=== PATIENT | male | born 1960 | race Caucasian/White ===

== ENCOUNTER 2017-04-22 05:47 | Inpatient (IN) | payer BC ==
--- NOTE | 2017-04-18 11:46 | HP ---
Satellite PMH - Chief Complaint Chief Complaint: left hip pain - Past Medical History Allergies/Adverse Reactions: Allergies Allergy/AdvReac Type Severity Reaction Status Date / Time No Known Drug Allergies Allergy Verified 04/15/17 12:25 Cardiovascular: Yes: HTN. No: AFIB Musculoskeletal: Yes: Other (RECENT LEFT TKR) Rheumatology: Yes: Gout - Current Medications Current Medications: Home Medications Medication Instructions Recorded Valsartan [Diovan] 160 mg PO DAILY 01/02/16 Colchicine [Colcrys -] 0.6 mg PO BID PRN 04/15/17 Satellite Physical Exam - Physical Examination General Appearance: Well Nourished, Well Developed, Alert & Oriented x3 ENT: Clear Lung: Normal air movement Heart: Regular rate & rhythm Extremities: Other (left hip- + ttp, decr rom, nvi xrays show grade 4 hip djd) Neurological: Intact, Alert, Oriented Satellite Impression/Plan - Impression/Plan Impression: left hip djd Operative Procedure: left agustina thr Date to be Performed: 04/22/17
[2017-04-22] MEDS ORDERED: GABAPENTIN 300 MG CAPSULE (FP) PO ONE (06:06)
[2017-04-22] MEDS ORDERED: CEFAZOLIN 2 GM/D5W 2 GM/50 ML ML IVPB ONE (06:06)
[2017-04-22] MEDS ORDERED: CELECOXIB 200 MG CAPSULE PO ONE (06:06)
[2017-04-22] MEDS ORDERED: oxyCODONE HCL 10 MG SUSTAINED ACTING TABLET PO ONE (06:06)
[2017-04-22] MEDS ORDERED: TRANEXAMIC ACID 1000 MG/10 ML VIAL IVPUSH ONE (06:06)
[2017-04-22] MEDS ORDERED: GABAPENTIN 300 MG CAPSULE (FP) ONE (06:09)
[2017-04-22] MEDS ORDERED: oxyCODONE HCL 10 MG SUSTAINED ACTING TABLET ONE (06:09)
[2017-04-22] MEDS ORDERED: CELECOXIB 200 MG CAPSULE ONE (06:09)
[2017-04-22 06:35] VITALS: BMI 42.3
[2017-04-22] MEDS ORDERED: VANCOMYCIN 1,000 MG VIAL (RESTRICTED TO ID ONLY) ONE (07:05)
[2017-04-22] MEDS ORDERED: ceFAZolin SODIUM 1 GM VIAL ONE ×2 (07:05→07:22)
[2017-04-22] MEDS ORDERED: ROPIVACAINE HCL 0.5% 30ML VIAL ONE (07:07)
[2017-04-22] MEDS ORDERED: MIDAZOLAM HCL 2 MG/2 ML SINGLE DOSE VIAL ONE ×2 (07:07→08:19)
[2017-04-22] MEDS ORDERED: SODIUM CHLORIDE 0.9% P/F 10 ML VIAL IJ ONE (07:07)
[2017-04-22] MEDS ORDERED: DEXAMETHASONE SOD PHOSPHATE/PF 10 MG/ML SDV ONE (07:07)
[2017-04-22] MEDS ORDERED: TRANEXAMIC ACID 1000 MG/10 ML VIAL ONE (07:22)
[2017-04-22] MEDS ORDERED: SUCCINYLCHOLINE CHLORIDE 200 MG/10 ML VIAL ONE (07:30)
[2017-04-22] MEDS ORDERED: ONDANSETRON 4 MG/2 ML VIAL ONE (08:30)
[2017-04-22] MEDS ORDERED: DEXAMETHASONE SOD PHOSPHATE 4 MG/1 ML VIAL ONE (08:30)
[2017-04-22] MEDS ORDERED: PROPOFOL 20 ML ONE ×2 (09:01)
[2017-04-22] MEDS ORDERED: VANCOMYCIN 1,000 MG VIAL (RESTRICTED TO ID ONLY) IVPB ONE (09:05)
[2017-04-22] MEDS ORDERED: MAG HYDROX/AL HYDROX/SIMETH 30 ML UNIT-DOSE CUP PO PRN (09:30)
[2017-04-22] MEDS ORDERED: LACTATED RINGERS SOLUTION 1,000 ML IV SCH (09:30)
[2017-04-22] MEDS ORDERED: ONDANSETRON 4 MG/2 ML VIAL IVPUSH PRN (09:30)
[2017-04-22] MEDS ORDERED: COLCHICINE 0.6 MG TABLET (FP) PO PRN (09:30)
[2017-04-22] MEDS ORDERED: MAGNESIUM HYDROX 2400MG/30ML ORAL SUSPENSION 30 ML CUP PO PRN (09:30)
--- NOTE | 2017-04-22 09:32 | OP ---
Operative Note - Note: Operative Date: 04/22/17 (ludmila) Pre-Operative Diagnosis: left hip djd Operation: left agustina thr Post-Operative Diagnosis: Same as Pre-op Surgeon: Yandel Ricci Billiard Player: Dawood Caldwell) Anesthesiologist/AIR TRAFFIC SYSTEMS TECHNICIAN: [place] Berry Anesthesia: Spinal, Local Specimens Removed: femoral head Estimated Blood Loss (mls): 150 Operative Report Dictated: Yes
[2017-04-22] MEDS ORDERED: VALSARTAN 160 MG TABLET (UD) PO SCH (10:00)
[2017-04-22] MEDS ORDERED: oxyCODONE HCL 5 MG TABLET PO PRN (11:09)
[2017-04-22] MEDS: ACETAMINOPHEN 325 MG TABLET (FP) PO SCH ×2 (13:00→17:30)
[2017-04-22] MEDS: CEFAZOLIN 2 GM/D5W 2 GM/50 ML ML IVPB SCH (15:37)
[2017-04-22] MEDS: oxyCODONE HCL 5 MG TABLET PO PRN ×2 (15:37→22:04)
--- NOTE | 2017-04-22 15:45 | SPEC ---
DATE OF OPERATION: 04/22/2017 PREOPERATIVE DIAGNOSIS: Degenerative joint disease left hip. POSTOPERATIVE DIAGNOSIS: Degenerative joint disease left hip. PROCEDURE PERFORMED: Left total hip replacement with robotic-assisted navigation (MAKOplasty). SURGICAL ATTENDING: Yandel Ricci MD OUTREACH LIBRARIAN: DALTON Joy and Shay Moore MD ANESTHESIA: Regional and spinal. CLOSURE: A 58 press-fit Tritanium acetabulum, a 36 +5 mm ceramic head, and a number 7 Accolade II press-fit femoral stem. Number 1 Vicryl for fascia, 0 and 2-0 subcutaneous, 3-0 Monocryl subcuticular with skin glue for skin, 4-0 undyed Vicryl for pin sites. ESTIMATED BLOOD LOSS: Less than 100 mL. COMPLICATIONS: None. CONDITION: To the recovery room in stable condition. DESCRIPTION OF PROCEDURE: The patient was taken to the operating room on April 22, 2017. Regional and spinal anesthesia was administered by the anesthesiologist. IV Kefzol and TXA were administered prophylactically prior to the case. The patient was placed in the lateral decubitus position will all prominences well-padded. The left hip area was prepped and draped in the usual sterile fashion. Using 3 small stab incisions over the iliac crest, 3 threaded pins were drilled in power fashion through the 2 tables of the crest. These pins were fastened and the navigation array for the Natalio navigation system. Next, a 12 to 15-cm curved longitudinal incision over the posterolateral aspect of the greater trochanter was incised. Hemostasis was achieved with Bovie cautery. Sharp dissection was carried down to level of the fascia. The fascia was opened the entire length of the incision, spreading the fibers of the gluteus ashley in the direction of origin. A Charnley retractor was placed in this layer. Care was taken not to impale the sciatic nerve. The short external rotators were detached off the insertion of the greater trochanter and peeled off the capsule. A posterior capsulotomy was then performed. A check point was malleted into the greater trochanter and a point on the inferior pole of the patella was obtained as well. These 2 points were used to assess the preoperative offset and limb lengths of the hip. The hip was then dislocated. The femoral neck was then osteotomized down to the appropriate level as directed by the navigation device. Anterior and posterior retractors were placed, exposing the acetabulum. A circumferential labral excision was performed. A check point was malleted into the acetabulum as well. Multiple sites inside the acetabulum and around the rim were utilized to register the acetabulum with the navigation device. An excellent registration of less than 0.5 mm was obtained. The hip was then reamed with the appropriate reamer down to the appropriate depth, with the appropriate orientation and version as assessed on our preoperative plan for this patient. The reamer was removed and the acetabulum was inspected to have good bleeding surfaces throughout. The real acetabular cup was then malleted down into place, with the holes in the appropriate position, until an excellent fixation was obtained. No screws were necessary. The navigation device ensured appropriate orientation and version, with the depth as predetermined. The appropriate liner was then clipped into place. Attention was directed to the femur. The proximal femur was prepared by use a box chisel, a canal finder and serial broaches until the broach achieved excellent rigidity in the proximal femur with the appropriate version being applied. A calcar planer was used to smooth off the calcar flush with the trial components. A trial reduction with the appropriate head was done, and the hip was reduced. The hip was taken through a range of motion from full extension with external rotation to marked flexion, and was stable at 90 degrees of flexion. It was stable to marked abduction and internal rotation, with a positive hang test and negative telescoping. Limb lengths were ascertained visually as well as with the navigation device to be within the targeted range for this patient. The trial component was removed. The real component was then malleted into place. The head was cold welded to the trunnion, and the hip was reduced. Range of motion, stability and limb lengths were as described in the trial component. Then the hip was pulse antibiotic irrigated. Vancomycin powder was placed in the hip joint. The capsule was closed. The fascia was then closed as well using number 1 Vicryl interrupted suture, 0 and 2-0 subcutaneous, and 3-0 Monocryl subcuticular for the skin. 4-0 undyed Vicryl was used to close the pin sites after the pins were removed. All check points were also removed. Sterile Aquacel dressing was applied. The patient was awakened from anesthesia and transferred into the supine position. Bilateral SCDs and an abduction pillow were placed. X-rays revealed excellent position of the components. The patient was transferred to the recovery room in stable condition, with no complications. Estimated blood loss was less than 100 mL. Isabella [id number]
[2017-04-22] MEDS: SENNOSIDES/DOCUSATE COMBO (SENNA PLUS) TABLET (UD) PO SCH (22:03)
[2017-04-22] MEDS: GABAPENTIN 300 MG CAPSULE (FP) PO SCH (22:03)
[2017-04-22] MEDS: oxyCODONE HCL 10 MG SUSTAINED ACTING TABLET PO SCH (22:03)
[2017-04-23] MEDS: CEFAZOLIN 2 GM/D5W 2 GM/50 ML ML IVPB SCH
[2017-04-23] MEDS: ACETAMINOPHEN 325 MG TABLET (FP) PO SCH ×4 (06:59→17:09)
[2017-04-23] MEDS: PANTOPRAZOLE 40 MG TABLET (FP) PO SCH ×2 (07:43→09:28)
[2017-04-23] MEDS: SENNOSIDES/DOCUSATE COMBO (SENNA PLUS) TABLET (UD) PO SCH ×3 (07:43→21:14)
[2017-04-23] MEDS: MULTIVITAMINS (DAILY MVI) TABLET (FP) PO SCH ×2 (07:44→09:28)
[2017-04-23] MEDS: oxyCODONE HCL 5 MG TABLET PO PRN (08:06)
[2017-04-23] MEDS: ASPIRIN 325 MG TABLET PO SCH (08:06)
[2017-04-23 08:53] LABS: HEMOGLOBIN 12.6 GM/dl (11.7-16.9); MCH 29.6 pg (25.7-33.7); MEAN CELL VOLUME 84.6 fl (80-96); MEAN PLT VOLUME 9.3 fl (7.5-11.1); PLATELET COUNT 156 K/MM3 (134-434); RBC 4.26 M/mm3 (4.00-5.60); RDW 13.4 % (11.9-15.9)
--- NOTE | 2017-04-23 09:27 | PN ---
Progress Note (short form) - Note Progress Note: Ortho Pt seen and examined s/p left agustina thr pod #1 Selected Entries 04/23/17 06:06 Temperature 98.5 F Pulse Rate 64 Respiratory 18 Rate Blood Pressure 101/65 Laboratory Tests 04/23/17 07:42 WBC 8.0 Hgb 12.6 Hct 36.0 Plt Count 156 dressing c/d/i, calf soft, nt nvi a/p PT hip precautions dvt ppx pain control d/c home tomorrow if stable
[2017-04-23] MEDS: oxyCODONE HCL 10 MG SUSTAINED ACTING TABLET PO SCH ×2 (09:28→21:14)
[2017-04-23] MEDS: VALSARTAN 160 MG TABLET (UD) PO SCH (09:28)
[2017-04-23] MEDS: GABAPENTIN 300 MG CAPSULE (FP) PO SCH ×2 (09:28→21:14)
--- NOTE | 2017-04-23 09:54 | PN ---
Progress Note (short form) - Note Progress Note: ANESTHESIOLOGY POST-OP CHECK 56M s/p left total hip replacement under spinal anesthesia and PNB, POD #1. No acute complaints. Pain 2/10 and tolerable. Denies N/V currently. Ambulating and voiding. Vital Signs Temperature 98.5 F 04/23/17 06:06 Pulse Rate 64 04/23/17 06:06 Respiratory Rate 18 04/23/17 06:06 Blood Pressure 101/65 04/23/17 06:06 O2 Sat by Pulse Oximetry (%) 98 04/23/17 06:06 Active Medications Acetaminophen (Tylenol -) 650 mg PO Q6H [facility] Stop: 04/25/17 11:59 Last Admin: 04/23/17 06:59 Dose: 650 mg Al Hydroxide/Mg Hydroxide (Mylanta Oral Suspension -) 30 ml PO Q4H PRN PRN Reason: DYSPEPSIA Aspirin (Asa -) 325 mg PO DAILY@0800 [facility] Last Admin: 04/23/17 08:06 Dose: 325 mg Colchicine (Colcrys -) 0.6 mg PO BID PRN PRN Reason: GOUT Gabapentin (Neurontin -) 300 mg PO BID [facility] Last Admin: 04/23/17 09:28 Dose: 300 mg Magnesium Hydroxide (Milk Of Magnesia -) 30 ml PO PRN PRN PRN Reason: CONSTIPATION Multivitamins/Minerals/Vitamin C (Tab-A-Vit -) 1 tab PO DAILY [facility] Last Admin: 04/23/17 09:28 Dose: 1 tab Ondansetron HCl (Zofran Injection) 4 mg IVPUSH Q6H PRN PRN Reason: NAUSEA Oxycodone HCl (Roxicodone -) 5 mg PO Q3H PRN PRN Reason: PAIN LEVEL 1-5 Last Admin: 04/23/17 02:34 Dose: 5 mg Oxycodone HCl (Roxicodone -) 10 mg PO Q3H PRN PRN Reason: PAIN LEVEL 6-10 Last Admin: 04/23/17 08:06 Dose: 10 mg Oxycodone HCl (Oxycontin -) 10 mg PO BID [facility] Stop: 04/25/17 11:10 Last Admin: 04/23/17 09:28 Dose: 10 mg Pantoprazole Sodium (Protonix -) 40 mg PO DAILY [facility] Last Admin: 04/23/17 09:28 Dose: 40 mg Senna/Docusate Sodium (Pericolace -) 2 tablet PO BID [facility] Last Admin: 04/23/17 09:28 Dose: 2 tablet Valsartan (Diovan -) 160 mg PO DAILY [facility] Last Admin: 04/23/17: Dose: 160 mg Gen: Awake, alert No apparent anesthesia complications. Pain controlled. Continue management as per primary team.
[2017-04-24] MEDS: ACETAMINOPHEN 325 MG TABLET (FP) PO SCH ×2 (00:21→05:43)
[2017-04-24 06:24] VITALS: BP 130/80; PULSE 78; TEMP 99.3
[2017-04-24 08:06] LABS: HEMATOCRIT 35.5 % (35.4-49); HEMOGLOBIN 11.9 GM/dl (11.7-16.9); MCH 28.2 pg (25.7-33.7); MCHC 33.4 g/dl (32.0-35.9); MEAN CELL VOLUME 84.4 fl (80-96); MEAN PLT VOLUME 9.1 fl (7.5-11.1); PLATELET COUNT 144 K/MM3 (134-434); RBC 4.21 M/mm3 (4.00-5.60); WHITE BLOOD COUNT 5.9 K/mm3 (4.0-10.8)
--- NOTE | 2017-04-24 08:20 | PN ---
Progress Note (short form) - Note Progress Note: Ortho Pt seen and examined s/p left agustina thr pod #2 Selected Entries 04/24/17 06:00 Temperature 99.3 F Pulse Rate 78 Respiratory 18 Rate Blood Pressure 130/80 Laboratory Tests 04/24/17 07:25 WBC Pending Hgb Pending Hct Pending Plt Count Pending dressing c/d/i, calf soft, nt nvi a/p PT hip precautions dvt ppx pain control d/c home today f/u in 1 week
--- NOTE | 2017-04-24 08:21 | DS ---
Physical Examination Vital Signs: Vital Signs Temperature 99.3 F 04/24/17 06:00 Pulse Rate 78 04/24/17 06:00 Respiratory Rate 18 04/24/17 06:00 Blood Pressure 130/80 04/24/17 06:00 O2 Sat by Pulse Oximetry (%) 94 L 04/24/17 06:00 Discharge Summary Reason For Visit: OSTEOARTHRITIS Procedures: Principal: s/p left agustina thr Hospital Course: admitted for elective left agustina thr, uneventful post-op, stable for d/c Condition: Good - Instructions Diet, Activity, Other Instructions: Post-op Instructions-Total Hip Replacement Call the office for a follow-up appointment in 1 week - [phone] Aspirin 325mg daily for 6 weeks. Pain medication was sent into your pharmacy. Apply Graduated Compression Stockings (TEDs) to both lower extremities- remove daily for hygiene ONLY Apply Sequential Compression Device (SCDs) to both Lower extremities remove for PT and hygiene ONLY Apply cold packs to affected area for 15 minutes every 2 hours. Physical Therapist will come to your home for the first 5 days. You will be set up with outpatient PT at your first post-operative visit. Patient may ambulate as tolerated-encourage self care (at least every 2-3 hours while awake) with walker or cane Maintain Aquacel (waterproof) dressing to operative wound (will be removed by surgeon at first office visit) Shower with Aquacel dressing in place-if Aquacel integrity compromised, remove and apply dry sterile dressing and notify Orthopedist. DO NOT SHOWER unless Orthopedists approves without Aquacel dressing CONTACT THE OFFICE FOR ANY CHANGE IN YOUR CONDITION (for example-fever greater than 102 degrees, excessive bleeding from operative site, purulent drainage, severe swelling or pain) GO TO THE EMERGENCY ROOM IF THERE IS A MEDICAL EMERGENCY Hip Precautions: * Keep a rolled towel under affected heel while in bed or chair (to keep knee in extension) * Dependent upon approach: * Posterior - do not cross legs; do not sit on low chairs or toilets. * If you have any questions, please do not hesitate to call the office - . Referrals: Shay Moore MD [Staff Physician] - Disposition: VNS/HOME HEALTH CARE - Home Medications Comprehensive Discharge Medication List: Ambulatory Orders Valsartan [Diovan] 160 mg PO DAILY 01/02/16 Colchicine [Colcrys -] 0.6 mg PO BID PRN 04/15/17 Aspirin [ASA -] 325 mg PO DAILY@0800 tablet 04/22/17 Oxycodone HCl/Acetaminophen [Percocet 5-325 mg Tablet] 1 - 2 tab PO Q6H #50 tab MDD 8 04/22/17
[2017-04-24] MEDS: GABAPENTIN 300 MG CAPSULE (FP) PO SCH (10:49)
[2017-04-24] MEDS: oxyCODONE HCL 10 MG SUSTAINED ACTING TABLET PO SCH (10:50)
[2017-04-24] MEDS: ASPIRIN 325 MG TABLET PO SCH (10:50)
[2017-04-24] MEDS: PANTOPRAZOLE 40 MG TABLET (FP) PO SCH (10:50)
[2017-04-24] MEDS: SENNOSIDES/DOCUSATE COMBO (SENNA PLUS) TABLET (UD) PO SCH (10:50)
[2017-04-24] MEDS: VALSARTAN 160 MG TABLET (UD) PO SCH (10:50)
--- NOTE | 2017-04-30 15:14 | PATH ---
Surgical Pathology Report Patient Name: STEPHANIA ARRIOLA Med. Rec. #: [id number] /Age/Gender: 1960 (Age: 56) / M Account: [id number] Location: [facility] Taken: 04/22/2017 Received: 04/22/2017 Reported: 04/30/2017 Physicians: Yandel Ricci M.D. Specimen(s) Received LEFT FEMORAL HEAD Clinical History Osteoarthritis left hip Final Diagnosis FEMORAL HEAD, LEFT, TOTAL HIP REPLACEMENT: DEGENERATIVE JOINT DISEASE. Electronically Signed Nanci Mccollum M.D. Gross Description Received in formalin, labeled "left femoral head," is a 5.0 x 5.0 x 4.2 cm. femoral head with a 1.2 cm in length portion of femoral neck attached. The margin of resection is smooth. No areas of eburnation are identified. The articular surface is sims-yellow and diffusely granular. The underlying trabecular bone is yellow and hard. A field service representative section is submitted in one cassette, following decalcification. 04/24/2017 [facility]04/24/2017
== END 2017-04-24 11:30 | disposition home health service (06) | DRG 470 ==
LOC: FM/S 05:47
PROVIDERS: ADMIT Orthopaedic Surgery; ATTEND Orthopaedic Surgery
PROC: 8E0W0CZ Robotic Assisted Procedure of Trunk Region, Open Approach (ICD-10-PCS; 2017-04-22)
PROC: 0SRB0JA Replacement of Left Hip Joint with Synthetic Substitute, Uncemented, Open Approach (ICD-10-PCS; principal; 2017-04-22 08:00)
DX: M16.12 Unilateral primary osteoarthritis, left hip (principal)
CPT/HCPCS: 36415; 73502-TC-LT-FY; 85027; 88304-TC; 88311-TC; 94010; 94760; 97116-GP; 97162-GP

== ENCOUNTER 2017-06-17 06:01 | Inpatient (IN) | payer BC ==
[2017-06-17] MEDS ORDERED: CEFAZOLIN 2 GM/D5W 2 GM/50 ML ML IVPB ONE (06:10)
[2017-06-17] MEDS ORDERED: TRANEXAMIC ACID 1000 MG/10 ML VIAL IVPUSH ONE (06:10)
[2017-06-17] MEDS ORDERED: oxyCODONE HCL 10 MG SUSTAINED ACTING TABLET PO ONE (06:10)
[2017-06-17] MEDS ORDERED: GABAPENTIN 300 MG CAPSULE (FP) PO ONE (06:10)
[2017-06-17] MEDS ORDERED: CELECOXIB 200 MG CAPSULE PO ONE (06:10)
[2017-06-17] MEDS ORDERED: VANCOMYCIN 1,000 MG VIAL (RESTRICTED TO ID ONLY) ONE (06:33)
[2017-06-17] MEDS ORDERED: ceFAZolin SODIUM 1 GM VIAL ONE ×2 (06:33→07:59)
[2017-06-17 06:38] VITALS: BMI 42.3
[2017-06-17] MEDS ORDERED: DEXAMETHASONE SOD PHOSPHATE/PF 10 MG/ML SDV ONE (06:54)
[2017-06-17] MEDS ORDERED: MIDAZOLAM HCL 2 MG/2 ML SINGLE DOSE VIAL ONE ×3 (06:54→08:55)
[2017-06-17] MEDS ORDERED: BUPIVACAINE HCL/PF (5 MG/ML) 30 ML VIAL IJ ONE (06:54)
[2017-06-17] MEDS ORDERED: PROPOFOL 20 ML ONE ×3 (07:01→08:10)
[2017-06-17] MEDS ORDERED: BUPIVACAINE HCL/PF 0.5% (5MG/ML) 10 ML VIAL ONE (07:06)
--- NOTE | 2017-06-17 07:17 | HP ---
Satellite H - Chief Complaint Chief Complaint: right hip pain - Past Medical History Allergies/Adverse Reactions: Allergies Allergy/AdvReac Type Severity Reaction Status Date / Time No Known Drug Allergies Allergy Verified 06/17/17 06:48 Cardiovascular: Yes: HTN. No: AFIB Musculoskeletal: Yes: Other (RECENT LEFT TKR) Rheumatology: Yes: Gout - Current Medications Current Medications: Home Medications Medication Instructions Recorded Valsartan [Diovan] 160 mg PO DAILY 01/02/16 Calcium Carbonate [Tums] 2 tab PO PRN PRN 06/17/17 Ibuprofen [Advil -] 400 mg PO TID PRN 06/17/17 Satellite Physical Exam - Physical Examination Vital Signs: Vital Signs Period Temp Pulse Resp BP Sys/Bartlett Pulse Ox Last 24 Hr 97.9 F 68 16 143/97 General Appearance: Well Nourished, Well Developed, Alert & Oriented x3 ENT: Clear Lung: Normal air movement Heart: Regular rate & rhythm Extremities: Other (right hip- + ttp, decr rom, nvi xrays show grade 4 djd) Neurological: Intact, Alert, Oriented Satellite Impression/Plan - Impression/Plan Impression: right hip djd Operative Procedure: right agustina thr Date to be Performed: 06/17/17
[2017-06-17] MEDS ORDERED: TRANEXAMIC ACID 1000 MG/10 ML VIAL ONE ×2 (07:59→08:30)
[2017-06-17] MEDS ORDERED: VANCOMYCIN 1,000 MG VIAL (RESTRICTED TO ID ONLY) IVPB ONE (09:15)
[2017-06-17] MEDS ORDERED: MAGNESIUM HYDROX 2400MG/30ML ORAL SUSPENSION 30 ML CUP PO PRN (09:37)
[2017-06-17] MEDS ORDERED: ONDANSETRON 4 MG/2 ML VIAL IVPUSH PRN ×2 (09:37→10:02)
[2017-06-17] MEDS ORDERED: MAG HYDROX/AL HYDROX/SIMETH 30 ML UNIT-DOSE CUP PO PRN (09:37)
--- NOTE | 2017-06-17 09:41 | OP ---
Operative Note - Note: Operative Date: 06/17/17 (ludmila) Pre-Operative Diagnosis: right hip djd Operation: right agustina thr Post-Operative Diagnosis: Same as Pre-op Surgeon: Yandel Ricci Retort Condenser Attendant: Dawood Caldwell) Anesthesiologist/WEATHERIZATION FIELD TECHNICIAN: Lucas Rivero Anesthesia: Spinal, Local Specimens Removed: femoral head Estimated Blood Loss (mls): 150 Operative Report Dictated: Yes
[2017-06-17] MEDS ORDERED: LACTATED RINGERS SOLUTION 1,000 ML IV SCH ×2 (09:45→10:15)
[2017-06-17] MEDS ORDERED: PROMETHAZINE HCL 25 MG/1 ML VIAL IVPUSH PRN (10:02)
[2017-06-17] MEDS: ACETAMINOPHEN 325 MG TABLET (FP) PO SCH ×4 (10:50→23:41)
[2017-06-17] MEDS: PANTOPRAZOLE 40 MG TABLET (FP) PO SCH ×2 (10:50→13:10)
[2017-06-17] MEDS: VALSARTAN 160 MG TABLET (UD) PO SCH (13:09)
[2017-06-17] MEDS: MULTIVITAMINS (DAILY MVI) TABLET (FP) PO SCH (13:10)
[2017-06-17] MEDS: SENNOSIDES/DOCUSATE COMBO (SENNA PLUS) TABLET (UD) PO SCH ×2 (13:10→21:55)
--- NOTE | 2017-06-17 15:33 | SPEC ---
DATE OF OPERATION: 06/17/2017 PREOPERATIVE DIAGNOSIS: Degenerative joint disease right hip. POSTOPERATIVE DIAGNOSIS: Degenerative joint disease right hip. PROCEDURE PERFORMED: Right total hip replacement with robotic-assisted navigation (MAKOplasty). SURGICAL ATTENDING: Becca Ricci MD COMPLIANCE LEAD: DALTON Joy and Shay Moore MD ANESTHESIA: Regional and spinal. CLOSURE: A [place] Press-Fit hip system with a number 8 Accolade II Press-Fit femoral stem, a ceramic plus five, 36-mm femoral head, and a Press-Fit 58 Tritanium acetabulum. Number 1 Vicryl for fascia, 0 and 2-0 subcutaneous, 3-0 V-Loc for skin, 4-0 undyed Vicryl for pin sites. ESTIMATED BLOOD LOSS: Less than 100 mL. COMPLICATIONS: None. CONDITION: To the recovery room in stable condition. DESCRIPTION OF PROCEDURE: The patient was taken to the operating room on June 17, 2017. General and regional anesthesia was administered by the anesthesiologist. IV Kefzol and TXA were administered prophylactically prior to the case. The patient was placed in the lateral decubitus position will all prominences well-padded. The right hip area was prepped and draped in the usual sterile fashion. Using 3 small stab incisions over the iliac crest, 3 threaded pins were drilled in power fashion through the 2 tables of the crest. These pins were fastened and the navigation array for the Natalio navigation system. Next, a 12 to 15-cm curved longitudinal incision over the posterolateral aspect of the greater trochanter was incised. Hemostasis was achieved with Bovie cautery. Sharp dissection was carried down to level of the fascia. The fascia was opened the entire length of the incision, spreading the fibers of the gluteus ashley in the direction of origin. A Charnley retractor was placed in this layer. Care was taken not to impale the sciatic nerve. The short external rotators were detached off the insertion of the greater trochanter and peeled off the capsule. A posterior capsulotomy was then performed. A check point was malleted into the greater trochanter and a point on the inferior pole of the patella was obtained as well. These 2 points were used to assess the preoperative offset and limb lengths of the hip. The hip was then dislocated. The femoral neck was then osteotomized down to the appropriate level as directed by the navigation device. Anterior and posterior retractors were placed, exposing the acetabulum. A circumferential labral excision was performed. A check point was malleted into the acetabulum as well. Multiple sites inside the acetabulum and around the rim were utilized to register the acetabulum with the navigation device. An excellent registration of less than 0.5 mm was obtained. The hip was then reamed with the appropriate reamer down to the appropriate depth, with the appropriate orientation and version as assessed on our preoperative plan for this patient. The reamer was removed and the acetabulum was inspected to have good bleeding surfaces throughout. The real acetabular cup was then malleted down into place, with the holes in the appropriate position, until an excellent fixation was obtained. No screws were necessary. The navigation device ensured appropriate orientation and version, with the depth as predetermined. The appropriate liner was then clipped into place. Attention was directed to the femur. The proximal femur was prepared by use a box chisel, a canal finder and serial broaches until the broach achieved excellent rigidity in the proximal femur with the appropriate version being applied. A calcar planer was used to smooth off the calcar flush with the trial components. A trial reduction with the appropriate head was done, and the hip was reduced. The hip was taken through a range of motion from full extension with external rotation to marked flexion, and was stable at 90 degrees of flexion. It was stable to marked abduction and internal rotation, with a positive hang test and negative telescoping. Limb lengths were ascertained visually as well as with the navigation device to be within the targeted range for this patient. The trial component was removed. The real component was then malleted into place. The head was cold welded to the trunnion, and the hip was reduced. Range of motion, stability and limb lengths were as described in the trial component. Then the hip was pulse antibiotic irrigated. Vancomycin powder was placed in the hip joint. The capsule was closed. The fascia was then closed as well using number 1 Vicryl interrupted suture, 0 and 2-0 subcutaneous, and 3-0 V-Loc for the skin. 4-0 undyed Vicryl was used to close the pin sites after the pins were removed. All check points were also removed. Sterile Aquacel dressing was applied. The patient was awakened from anesthesia and transferred into the supine position. Bilateral SCDs and an abduction pillow were placed. X-rays revealed excellent position of the components. The patient was transferred to the recovery room in stable condition, with no complications. Estimated blood loss was less than 100 mL. Shay Moore MD dictating for MD BECCA Goldstein M.D. [id number]
[2017-06-17] MEDS: CEFAZOLIN 2 GM/D5W 2 GM/50 ML ML IVPB SCH ×2 (16:59→23:42)
[2017-06-17] MEDS: oxyCODONE HCL 5 MG TABLET PO PRN ×2 (17:02→23:34)
[2017-06-17] MEDS: oxyCODONE HCL 10 MG SUSTAINED ACTING TABLET PO SCH (21:56)
[2017-06-17] MEDS: GABAPENTIN 300 MG CAPSULE (FP) PO SCH (21:56)
[2017-06-18] MEDS: ACETAMINOPHEN 325 MG TABLET (FP) PO SCH ×4 (05:34→22:55)
[2017-06-18] MEDS: oxyCODONE HCL 5 MG TABLET PO PRN ×3 (05:34→22:43)
[2017-06-18] MEDS: ASPIRIN 325 MG TABLET PO SCH (08:50)
[2017-06-18 09:06] LABS: HEMATOCRIT 36.2 % (35.4-49); HEMOGLOBIN 12.3 GM/dl (11.7-16.9); MCH 28.3 pg (25.7-33.7); MCHC 33.9 g/dl (32.0-35.9); MEAN CELL VOLUME 83.4 fl (80-96); MEAN PLT VOLUME 9.4 fl (7.5-11.1); PLATELET COUNT 145 K/MM3 (134-434); RBC 4.34 M/mm3 (4.00-5.60); RDW 13.9 % (11.9-15.9); WHITE BLOOD COUNT 7.7 K/mm3 (4.0-10.8)
--- NOTE | 2017-06-18 09:57 | PN ---
Progress Note (short form) - Note Progress Note: Ortho Pt seen and examined s/p right agustina thr pod #1 Selected Entries 06/18/17 06:37 Temperature 98.0 F Pulse Rate 78 Respiratory 19 Rate Blood Pressure 120/75 Laboratory Tests 06/18/17 07:30 WBC 7.7 D Hgb 12.3 Hct 36.2 Plt Count 145 dressing c/d/i, calf soft, nt nvi a/p PT hip precautions dvt ppx pain control d/c home tomorrow if stable
[2017-06-18] MEDS: PANTOPRAZOLE 40 MG TABLET (FP) PO SCH (10:41)
[2017-06-18] MEDS: oxyCODONE HCL 10 MG SUSTAINED ACTING TABLET PO SCH ×2 (10:41→21:49)
[2017-06-18] MEDS: MULTIVITAMINS (DAILY MVI) TABLET (FP) PO SCH (10:41)
[2017-06-18] MEDS: SENNOSIDES/DOCUSATE COMBO (SENNA PLUS) TABLET (UD) PO SCH ×2 (10:42→21:51)
[2017-06-18] MEDS: VALSARTAN 160 MG TABLET (UD) PO SCH (10:46)
[2017-06-18] MEDS: GABAPENTIN 300 MG CAPSULE (FP) PO SCH ×2 (10:46→21:49)
--- NOTE | 2017-06-18 11:52 | PN ---
Progress Note, Physician Chief Complaint: Pt. pain controlled, no anesthesia complaints. - Current Medication List Current Medications: Active Medications Acetaminophen (Tylenol -) 650 mg PO Q6H [facility] Stop: 06/20/17 10:59 Last Admin: 06/18/17 10:41 Dose: 650 mg Al Hydroxide/Mg Hydroxide (Mylanta Oral Suspension -) 30 ml PO Q4H PRN PRN Reason: DYSPEPSIA Aspirin (Asa -) 325 mg PO DAILY@0800 [facility] Last Admin: 06/18/17 08:50 Dose: 325 mg Gabapentin (Neurontin -) 300 mg PO BID [facility] Last Admin: 06/18/17 10:46 Dose: 300 mg Magnesium Hydroxide (Milk Of Magnesia -) 30 ml PO PRN PRN PRN Reason: CONSTIPATION Multivitamins/Minerals/Vitamin C (Tab-A-Vit -) 1 tab PO DAILY [facility] Last Admin: 06/18/17 10:41 Dose: 1 tab Ondansetron HCl (Zofran Injection) 4 mg IVPUSH Q6H PRN PRN Reason: NAUSEA Oxycodone HCl (Roxicodone -) 5 mg PO Q3H PRN PRN Reason: PAIN LEVEL 1-5 Last Admin: 06/18/17 05:34 Dose: 5 mg Oxycodone HCl (Roxicodone -) 10 mg PO Q3H PRN PRN Reason: PAIN LEVEL 6-10 Last Admin: 06/17/17 23:34 Dose: 10 mg Oxycodone HCl (Oxycontin -) 10 mg PO BID [facility] Stop: 06/20/17 10:02 Last Admin: 06/18/17 10:41 Dose: 10 mg Pantoprazole Sodium (Protonix -) 40 mg PO DAILY [facility] Last Admin: 06/18/17 10:41 Dose: 40 mg Senna/Docusate Sodium (Pericolace -) 2 tablet PO BID [facility] Last Admin: 06/18/17 10:42 Dose: 2 tablet Valsartan (Diovan -) 160 mg PO DAILY [facility] Last Admin: 06/18/17 10:46 Dose: 160 mg - Objective Vital Signs: Vital Signs Temperature 98.0 F 06/18/17 06:37 Pulse Rate 78 06/18/17 06:37 Respiratory Rate 19 06/18/17 08:44 Blood Pressure 120/75 06/18/17 06:37 O2 Sat by Pulse Oximetry (%) 98 06/18/17 08:44 Constitutional: Yes: Well Nourished, No Distress, Calm Musculoskeletal: Yes: WNL Neurological: Yes: WNL, Alert, Oriented ...Motor Strength: WNL Labs: CBC, BMP 06/18/17 07:30 Assessment/Plan POD#1 s/p Right Hip Replacement under spinal with paravertebral block
[2017-06-19] MEDS: ACETAMINOPHEN 325 MG TABLET (FP) PO SCH (06:06)
[2017-06-19] MEDS: oxyCODONE HCL 5 MG TABLET PO PRN (06:07)
[2017-06-19 06:51] VITALS: BP 114/71; PULSE 77; TEMP 98.6
--- NOTE | 2017-06-19 08:20 | PN ---
Progress Note (short form) - Note Progress Note: Ortho Pt seen and examined s/p right agustina thr pod #2 Selected Entries 06/19/17 06:00 Temperature 98.6 F Pulse Rate 77 Respiratory 18 Rate Blood Pressure 114/71 Laboratory Tests 06/18/17 07:30 WBC 7.7 D Hgb 12.3 Hct 36.2 Plt Count 145 dressing c/d/i, calf soft, nt nvi a/p PT hip precautions dvt ppx pain control d/c home today f/u in 1 week
--- NOTE | 2017-06-19 08:21 | DS ---
Physical Examination Vital Signs: Vital Signs Temperature 98.6 F 06/19/17 06:00 Pulse Rate 77 06/19/17 06:00 Respiratory Rate 18 06/19/17 06:00 Blood Pressure 114/71 06/19/17 06:00 O2 Sat by Pulse Oximetry (%) 95 06/19/17 06:00 Labs: CBC, BMP 06/18/17 07:30 Discharge Summary Reason For Visit: OSTEOARTHRITIS Procedures: Principal: s/p right thr Hospital Course: admitted for elective right agustina thr, uneventful post-op, stable for d/c Condition: Good - Instructions Diet, Activity, Other Instructions: Post-op Instructions-Total Hip Replacement Call the office for a follow-up appointment in 1 week - [phone] Aspirin 325mg daily for 6 weeks. Pain medication was sent into your pharmacy. Apply Graduated Compression Stockings (TEDs) to both lower extremities- remove daily for hygiene ONLY Apply Sequential Compression Device (SCDs) to both Lower extremities remove for PT and hygiene ONLY Apply cold packs to affected area for 15 minutes every 2 hours. Physical Therapist will come to your home for the first 5 days. You will be set up with outpatient PT at your first post-operative visit. Patient may ambulate as tolerated-encourage self care (at least every 2-3 hours while awake) with walker or cane Maintain Aquacel (waterproof) dressing to operative wound (will be removed by surgeon at first office visit) Shower with Aquacel dressing in place-if Aquacel integrity compromised, remove and apply dry sterile dressing and notify Orthopedist. DO NOT SHOWER unless Orthopedists approves without Aquacel dressing CONTACT THE OFFICE FOR ANY CHANGE IN YOUR CONDITION (for example-fever greater than 102 degrees, excessive bleeding from operative site, purulent drainage, severe swelling or pain) GO TO THE EMERGENCY ROOM IF THERE IS A MEDICAL EMERGENCY Hip Precautions: * Keep a rolled towel under affected heel while in bed or chair (to keep knee in extension) * Dependent upon approach: * Posterior - do not cross legs; do not sit on low chairs or toilets. * If you have any questions, please do not hesitate to call the office - [phone]. Referrals: Shay Moore MD [Staff Physician] - Disposition: HOME - Home Medications Comprehensive Discharge Medication List: Ambulatory Orders Valsartan [Diovan] 160 mg PO DAILY 01/02/16 Aspirin [ASA -] 325 mg PO DAILY@0800 tablet 06/17/17 Calcium Carbonate [Tums] 2 tab PO PRN PRN 06/17/17 Ibuprofen [Advil -] 400 mg PO TID PRN 06/17/17 Oxycodone HCl/Acetaminophen [Percocet 5-325 mg Tablet] 1 - 2 tab PO Q6H #50 tab MDD 8 06/17/17
[2017-06-19] MEDS: ASPIRIN 325 MG TABLET PO SCH (08:39)
[2017-06-19] MEDS: SENNOSIDES/DOCUSATE COMBO (SENNA PLUS) TABLET (UD) PO SCH (09:41)
[2017-06-19] MEDS: VALSARTAN 160 MG TABLET (UD) PO SCH (09:42)
[2017-06-19] MEDS: GABAPENTIN 300 MG CAPSULE (FP) PO SCH (09:43)
[2017-06-19] MEDS: MULTIVITAMINS (DAILY MVI) TABLET (FP) PO SCH (09:43)
[2017-06-19] MEDS: oxyCODONE HCL 10 MG SUSTAINED ACTING TABLET PO SCH (09:43)
[2017-06-19] MEDS: PANTOPRAZOLE 40 MG TABLET (FP) PO SCH (09:43)
--- NOTE | 2017-06-20 16:49 | PATH ---
Surgical Pathology Report Patient Name: STEPHANIA ARRIOLA Med. Rec. #: [id number] /Age/Gender: 1960 (Age: 56) / M Account: [id number] Location: [facility] MED-SURG Taken: 06/17/2017 Received: 06/17/2017 Reported: 06/20/2017 Physicians: Isabella Roberts M.D. Specimen(s) Received RIGHT FEMORAL HEAD Clinical History Osteoarthritis right hip Final Diagnosis FEMORAL HEAD, RIGHT, TOTAL HIP REPLACEMENT MAKOPLASTY: DEGENERATIVE JOINT DISEASE. Electronically Signed Zoraida Bowling M.D. Gross Description Received in formalin labelled "right femoral head" is a 5.8 x 5.5 x 5.5 cm portion of bone consistent with a femoral head. The bone at the femoral neck is firm and uniform. The articular cartilage is markedly irregular and there is a 5 x 2.5 cm area of eburnation. Bony spurring is noted at the periphery. A small amount of attached soft tissue is present. A credit resolution representative portion is submitted in one cassette after decalcification. [facility]/06/19/2017 [facility]/06/19/2017
== END 2017-06-19 11:58 | disposition home health service (06) | DRG 470 ==
LOC: FM/S 06:01
PROVIDERS: ADMIT Orthopaedic Surgery; ATTEND Orthopaedic Surgery
PROC: 8E0Y0CZ Robotic Assisted Procedure of Lower Extremity, Open Approach (ICD-10-PCS; 2017-06-17)
PROC: 0SR90JA Replacement of Right Hip Joint with Synthetic Substitute, Uncemented, Open Approach (ICD-10-PCS; principal; 2017-06-17 07:30)
DX: M16.11 Unilateral primary osteoarthritis, right hip (principal)
CPT/HCPCS: 36415; 73502-TC-RT; 85027; 87389; 94010; 94760; 97116-GP

== ENCOUNTER 2023-02-18 05:57 | Day surgery (SDC) | payer BC ==
[2023-02-12 08:05] VITALS: BMI 40.6
[2023-02-18] MEDS ORDERED: CEFAZOLIN 2 GM in DEXTROSE 5%-WATER - 50 ML IVPB ONE (06:29)
[2023-02-18] MEDS ORDERED: TRANEXAMIC ACID 1000 MG/10 ML VIAL IVPUSH ONE (06:29)
[2023-02-18] MEDS ORDERED: oxyCODONE HCL 5 MG TABLET PO PRN (06:59)
[2023-02-18] MEDS ORDERED: ACETAMINOPHEN 325 MG TABLET (FP) PO PRN (06:59)
[2023-02-18] MEDS ORDERED: ceFAZolin SODIUM 1 GM VIAL ONE (07:14)
[2023-02-18] MEDS ORDERED: VANCOMYCIN 1,000 MG VIAL (RESTRICTED TO ID ONLY) ONE (07:14)
[2023-02-18] MEDS ORDERED: BUPIVACAINE HCL/PF 0.5% (5MG/ML) 10 ML VIAL ONE (07:25)
[2023-02-18] MEDS ORDERED: MIDAZOLAM HCL 2 MG/2 ML SINGLE DOSE VIAL ONE ×3 (07:25→08:46)
[2023-02-18] MEDS ORDERED: ACETAMINOPHEN INJECTION 100 ML IVPB ONE (07:25)
[2023-02-18] MEDS ORDERED: BUPIVACAINE LIPOSOME/PF (EXPAREL) 266 MG/20 ML VIAL ONE (07:25)
[2023-02-18] MEDS ORDERED: PROPOFOL 40 ML ONE (07:48)
[2023-02-18] MEDS ORDERED: ONDANSETRON 4 MG/2 ML VIAL IVPUSH PRN (07:58)
[2023-02-18] MEDS ORDERED: ePHEDrine SULFATE 50 MG/1 ML AMPULE ONE (08:22)
[2023-02-18] MEDS ORDERED: KETOROLAC TROMETHAMINE 30 MG/1 ML VIAL ONE (08:44)
[2023-02-18] MEDS ORDERED: DEXAMETHASONE SOD PHOSPHATE 4 MG/1 ML VIAL ONE (08:44)
[2023-02-18] MEDS ORDERED: PROPOFOL 20 ML ONE (09:08)
[2023-02-18] MEDS ORDERED: VANCOMYCIN 1,000 MG VIAL (RESTRICTED TO ID ONLY) IVPB ONE (09:43)
[2023-02-18] MEDS: SENNOSIDES/DOCUSATE COMBO (SENNA PLUS) TABLET (UD) PO SCH ×2 (12:20→21:34)
[2023-02-18] MEDS: HYDROCHLOROTHIAZIDE 12.5 MG CAPSULE (FP) PO SCH (12:20)
[2023-02-18] MEDS: MULTIVITAMINS (DAILY MVI) TABLET (FP) PO SCH (12:20)
[2023-02-18] MEDS: PANTOPRAZOLE 40 MG TABLET PO SCH (12:20)
[2023-02-18] MEDS: oxyCODONE HCL 5 MG TABLET PO PRN ×2 (15:38→20:47)
[2023-02-18] MEDS: LACTATED RINGERS SOLUTION 1,000 ML IV SCH (16:33)
[2023-02-18] MEDS: CEFAZOLIN 3 GM in DEXTROSE 5%-WATER - 100 ML IVPB SCH ×2 (16:35→23:37)
[2023-02-18] MEDS ORDERED: ROSUVASTATIN CA 5 MG TABLET PO SCH (22:00)
[2023-02-19] MEDS: oxyCODONE HCL 5 MG TABLET PO PRN ×4 (02:13→12:55)
[2023-02-19] MEDS ORDERED: ASPIRIN 325 MG TABLET PO SCH (08:00)
[2023-02-19 08:08] LABS: HEMATOCRIT 36.1 % (35.4-49); HEMOGLOBIN 11.8 G/dL (11.7-16.9); MCH 28.1 pg (25.7-33.7); MCHC 32.6 g/dl (32.0-35.9); MEAN CELL VOLUME 86.4 fl (80-96); MEAN PLT VOLUME 8.9 fl (7.5-11.1); PLATELET COUNT 151.4 10^3/uL (134-434); RBC 4.18 10^6/uL (4.00-5.60); RDW 14.9 % (11.9-15.9); WHITE BLOOD COUNT 6.2 10^3/uL (4.0-10.8)
[2023-02-19] MEDS: LACTATED RINGERS SOLUTION 1,000 ML IV SCH (08:29)
[2023-02-19] MEDS: PANTOPRAZOLE 40 MG TABLET PO SCH (09:15)
[2023-02-19] MEDS: HYDROCHLOROTHIAZIDE 12.5 MG CAPSULE (FP) PO SCH (09:15)
[2023-02-19] MEDS: MULTIVITAMINS (DAILY MVI) TABLET (FP) PO SCH (09:15)
[2023-02-19] MEDS: SENNOSIDES/DOCUSATE COMBO (SENNA PLUS) TABLET (UD) PO SCH (09:16)
[2023-02-19] MEDS ORDERED: VALSARTAN 160 MG TABLET PO SCH (10:00)
[2023-02-19 10:06] VITALS: RESP 18
[2023-02-19 14:12] VITALS: BP 110/56; PULSE 74; TEMP 98.3
== END 2023-02-19 15:29 | disposition home health service (06) ==
LOC: FASUSAT 05:57 → FASU 05:57 → FM/S 12:01 → FASUSAT 02-19 15:29
PROVIDERS: ATTEND Orthopaedic Surgery
PROC: 8E0Y0CZ Robotic Assisted Procedure of Lower Extremity, Open Approach (ICD-10-PCS; 2023-02-18)
PROC: 0SRC0J9 Replacement of Right Knee Joint with Synthetic Substitute, Cemented, Open Approach (ICD-10-PCS; principal; 2023-02-18 08:31)
DX: M17.11 Unilateral primary osteoarthritis, right knee (principal); I10 Essential (primary) hypertension; M10.9 Gout, unspecified; Z96.652 Presence of left artificial knee joint
CPT/HCPCS: 20985; 27447; C1776; S2900; 36415; 73560-TC-RT-FY; 85027; 94760; 97010-GP; 97116-GP; 97162-GP; C1713; C1889